=== PATIENT | male | born 1975 | race Caucasian/White ===

== ENCOUNTER 2017-06-05 17:40 | Emergency (ER) | payer SELFPAY ==
[~2017-06-05] VITALS: Ht 172.7 cm; Wt 83.5 kg
[2017-06-05 17:49] VITALS: BP_SYST 116
--- NOTE | 2017-06-05 17:59 | NUR ---
Jayshree alcala in ED - 06/05/17 at 1826 by RADHA Patient to [facility] 7 to [facility] for evaluation. Side rails up. Report received from [place].
--- NOTE | 2017-06-05 17:59 | NUR ---
Patient to ER bed 7 to gown for evaluation. Side rails up. Report received from ALDAIR [place].
--- NOTE | 2017-06-05 18:00 | NUR ---
Note cari in EDM - 06/05/17 at 1825 by RADHA Pt complains of having pain to right groin that radiates to right flank for 3 days. Pt states he vomited once on the first day but has not done so since. Pt also states it "hurts when I pee." No other injuries/complaints per patient or noted. at bedside.
--- NOTE | 2017-06-05 18:06 | NUR ---
ER Dr. Bates at bedside examining patient.
[2017-06-05 18:14] LABS: BILIRUBIN,URINE 1+ (NEGATIVE); BLOOD, URINE 3+ (NEGATIVE); CLARITY/URINE CLEAR (CLEAR); COLOR,URINE YELLOW (YELLOW); GLUCOSE,URINE NEGATIVE (NEGATIVE); KETONES,URINE TRACE (NEGATIVE); LEUKOCYTE ESTERASE ,URINE NEGATIVE (NEGATIVE); NITRITE, URINE NEGATIVE (NEGATIVE); PH,URINE 5.5 (5.0-8.0); PROTEIN URINE NEGATIVE (NEGATIVE); UROBILINOGEN,URINE 0.2 (0.2-1.0)
[2017-06-05] MEDS: KETOROLAC TROMETHAMINE 30 MG VIAL IVP ONE (18:14)
[2017-06-05 18:19] LABS: BASOPHILS % (AUTO) 0.8 % (0.0-2.0); EOSINOPHILS # (AUTO) 0.7 K/uL (0.0-0.4); EOSINOPHILS % (AUTO) 13.7 % (0.0-4.0); HEMATOCRIT 46.8 % (36-54); HEMOGLOBIN 15.5 g/dL (14.0-18.0); LYMPHOCYTES # (AUTO) 2.1 K/uL (1.0-5.5); LYMPHOCYTES % (AUTO) 38.5 % (20.5-51.5); MEAN CORPUSCULAR HEMOGLOBIN 27 pg (27-31); MEAN CORPUSCULAR HGB CONC 33 % (32-36); MEAN CORPUSCULAR VOLUME 82 fL (79.0-98.0); MONOCYTES # (AUTO) 0.6 K/uL (0.0-1.0); MONOCYTES % (AUTO) 10.5 % (1.7-9.3); NEUTROPHILS % (AUTO) 36.5 % (40.0-70.0); PLATELET COUNT (AUTO) 243 K/uL (130-430); RED BLOOD CELL COUNT(AUTO) 5.68 MIL/uL (4.2-6.2); RED CELL DISTRIBUTION WIDTH 13.5 % (9.0-15.0); WHITE BLOOD COUNT (AUTO) 5.4 K/uL (4.8-10.8)
[2017-06-05 18:20] LABS: RBC,URINE 20-50 /HPF (0-3); WBC,URINE 0-3 /HPF (0-3)
[2017-06-05 18:21] LABS: BACTERIA,URINE FEW /HPF (None Seen)
--- NOTE | 2017-06-05 18:32 | NUR ---
Pt went to radiology in stable condition.
[2017-06-05 18:34] LABS: CALCIUM 9.4 mg/dL (8.4-11.0); CREATININE 1.17 mg/dL (0.55-1.30); POTASSIUM 3.1 mmol/L (3.5-5.1)
[2017-06-05 18:38] LABS: ALBUMIN 4.1 g/dL (3.4-4.8); TOTAL BILIRUBIN 0.6 mg/dL (0.0-1.0)
--- NOTE | 2017-06-05 18:40 | NUR ---
Pt returned from radiology in stable condition.
[2017-06-05] MEDS: POTASSIUM CHLORIDE 20 MEQ TAB.PRT.SR PO ONE (18:53)
[2017-06-05 19:38] VITALS: BP_SYST 122
--- NOTE | 2017-06-05 19:38 | NUR ---
Patient given written and verbal discharge instructions and verbalizes understanding. ER MD discussed with patient the results and treatment provided. Patient in stable condition. ID arm band removed. IV catheter removed intact and dressing applied, no active bleeding. Rx of Zofran, Motrin, and Tramadol given. Patient educated on pain management and to follow up with PMD. Pain Scale 2/10 tolerable to patient. Opportunity for questions provided and answered.
== END 2017-06-05 19:38 | disposition home or self-care (01) ==
LOC: SED 17:40
DX: N20.0 Calculus of kidney (principal)
CPT/HCPCS: 36415; 74176; 80053; 81000; 83690; 85025; 96374; 99285; J1885

== ENCOUNTER 2017-08-24 13:16 | Emergency (ER) | payer MEDICAID ==
[~2017-08-24] VITALS: Ht 172.7 cm; Wt 79.4 kg
[2017-08-24 13:25] VITALS: BP_SYST 131
[2017-08-24] MEDS ORDERED: NACL 0.9% 1,000 ML IV ONE (14:08)
[2017-08-24 14:34] LABS: BASOPHILS % (AUTO) 0.7 % (0.0-2.0); EOSINOPHILS # (AUTO) 0.8 K/uL (0.0-0.4); EOSINOPHILS % (AUTO) 14.8 % (0.0-4.0); HEMATOCRIT 48.3 % (36-54); HEMOGLOBIN 15.6 g/dL (14.0-18.0); LYMPHOCYTES % (AUTO) 37.9 % (20.5-51.5); MEAN CORPUSCULAR HEMOGLOBIN 27 pg (27-31); MEAN CORPUSCULAR HGB CONC 32 % (32-36); MEAN CORPUSCULAR VOLUME 84 fL (79.0-98.0); MONOCYTES # (AUTO) 0.4 K/uL (0.0-1.0); MONOCYTES % (AUTO) 7.9 % (1.7-9.3); NEUTROPHILS % (AUTO) 38.7 % (40.0-70.0); PLATELET COUNT (AUTO) 248 K/uL (130-430); RED BLOOD CELL COUNT(AUTO) 5.78 MIL/uL (4.2-6.2); RED CELL DISTRIBUTION WIDTH 13.8 % (9.0-15.0); WHITE BLOOD COUNT (AUTO) 5.2 K/uL (4.8-10.8)
[2017-08-24 14:48] LABS: CALCIUM 9.9 mg/dL (8.4-11.0); CREATININE 0.82 mg/dL (0.55-1.30); POTASSIUM 4.1 mmol/L (3.5-5.1)
[2017-08-24 14:52] LABS: ALBUMIN 4.3 g/dL (3.4-4.8); TOTAL BILIRUBIN 0.4 mg/dL (0.0-1.0)
[2017-08-24 15:20] LABS: BILIRUBIN,URINE NEGATIVE (NEGATIVE); CLARITY/URINE CLEAR (CLEAR); COLOR,URINE YELLOW (YELLOW); GLUCOSE,URINE NEGATIVE (NEGATIVE); KETONES,URINE NEGATIVE (NEGATIVE); LEUKOCYTE ESTERASE ,URINE NEGATIVE (NEGATIVE); NITRITE, URINE NEGATIVE (NEGATIVE); PROTEIN URINE NEGATIVE (NEGATIVE); UROBILINOGEN,URINE 0.2 (0.2-1.0)
[2017-08-24 15:23] LABS: BLOOD, URINE TRACE (NEGATIVE)
[2017-08-24 15:35] LABS: BACTERIA,URINE FEW /HPF (None Seen); MUCUS,URINE None Seen /LPF (None Seen); RBC,URINE 0-3 /HPF (0-3); WBC,URINE 0-3 /HPF (0-3)
[2017-08-24 17:30] VITALS: BP_SYST 124
[2017-08-25] MEDS ORDERED: LACTULOSE 20 GM/30 ML UDC PO ONE (09:00)
== END 2017-08-24 17:30 | disposition home or self-care (01) ==
LOC: SED 13:16
DX: K92.1 Melena (principal); K59.00 Constipation, unspecified; J45.909 Unspecified asthma, uncomplicated
CPT/HCPCS: 36415; 74176; 80053; 81000; 83690; 85025; 96360; 99285; J7030

== ENCOUNTER 2018-10-22 10:45 | Emergency (ER) | payer MEDICAID ==
[~2018-10-22] VITALS: Ht 177.8 cm; Wt 90.7 kg
[2018-10-22 10:45] VITALS: BP_SYST 121
[2018-10-22 11:24] LABS: BASOPHILS % (AUTO) 0.9 % (0.0-2.0); EOSINOPHILS # (AUTO) 0.4 K/uL (0.0-0.4); EOSINOPHILS % (AUTO) 8.1 % (0.0-4.0); HEMATOCRIT 46.4 % (36-54); HEMOGLOBIN 15.4 g/dL (14.0-18.0); LYMPHOCYTES # (AUTO) 2.1 K/uL (1.0-5.5); LYMPHOCYTES % (AUTO) 45.1 % (20.5-51.5); MEAN CORPUSCULAR HEMOGLOBIN 28 pg (27-31); MEAN CORPUSCULAR HGB CONC 33 % (32-36); MEAN CORPUSCULAR VOLUME 84 fL (79.0-98.0); MONOCYTES # (AUTO) 0.4 K/uL (0.0-1.0); MONOCYTES % (AUTO) 9.2 % (1.7-9.3); NEUTROPHILS # (AUTO) 1.7 K/uL (1.8-7.7); NEUTROPHILS % (AUTO) 36.7 % (40.0-70.0); PLATELET COUNT (AUTO) 180 K/uL (130-430); RED BLOOD CELL COUNT(AUTO) 5.53 MIL/uL (4.2-6.2); RED CELL DISTRIBUTION WIDTH 14.3 % (9.0-15.0); WHITE BLOOD COUNT (AUTO) 4.7 K/uL (4.8-10.8)
[2018-10-22 11:43] LABS: CALCIUM 9.4 mg/dL (8.4-11.0); CREATININE 0.94 mg/dL (0.55-1.30)
[2018-10-22 11:51] LABS: ALBUMIN 4.3 g/dL (3.4-4.8); TOTAL BILIRUBIN 0.4 mg/dL (0.0-1.0)
[2018-10-22 11:56] LABS: BILIRUBIN,URINE NEGATIVE (NEGATIVE); CLARITY/URINE CLEAR (CLEAR); COLOR,URINE YELLOW (YELLOW); GLUCOSE,URINE NEGATIVE (NEGATIVE); KETONES,URINE NEGATIVE (NEGATIVE); LEUKOCYTE ESTERASE ,URINE NEGATIVE (NEGATIVE); NITRITE, URINE NEGATIVE (NEGATIVE); PROTEIN URINE NEGATIVE (NEGATIVE); UROBILINOGEN,URINE 0.2 (0.2-1.0)
[2018-10-22 11:59] LABS: BLOOD, URINE TRACE (NEGATIVE)
[2018-10-22 12:16] LABS: BACTERIA,URINE FEW /HPF (None Seen); WBC,URINE 0-3 /HPF (0-3)
[2018-10-22 13:18] VITALS: BP_SYST 136
== END 2018-10-22 13:18 | disposition home or self-care (01) ==
LOC: SED 10:45
DX: K21.9 Gastro-esophageal reflux disease without esophagitis (principal); J45.909 Unspecified asthma, uncomplicated; F17.200 Nicotine dependence, unspecified, uncomplicated
CPT/HCPCS: 36415; 74021; 80053; 81000-TC; 83690-TC; 85025; 99284

== ENCOUNTER 2018-11-12 21:18 | Emergency (ER) | payer MEDICAID ==
[~2018-11-12] VITALS: Ht 175.3 cm; Wt 90.7 kg
[2018-11-12 21:32] VITALS: BP_SYST 106
--- NOTE | 2018-11-12 21:39 | NUR ---
Patient triaged and placed in waiting room. VSS and patient appears in no acute distress at this time. Accompanied by family, awaiting available bed, and MD notified of need for MSE.
--- NOTE | 2018-11-12 22:09 | NUR ---
Patient to ER bed 4 to gown for evaluation. Side rails up. Report given to AGA QUINTEROS.
--- NOTE | 2018-11-12 22:20 | NUR ---
Pt is a 43 y/o male who comes to the ER w/ c/o of a skin tag on his upper back for a day. Pt reports he was seen by his PMD in [place] a day ago for was advised to remove it via strangulation. Pt arrived to the ER w/ a string tied around the base of the tag. Pt reports having severe pain at this time which is constant and nonradiating and is worse when pressure is applied. No meds have been used for pain. pt denies fever, chills, recent trauma, n/v, sob, cheat pain, or other complaints. Will cont to monitor pt.
--- NOTE | 2018-11-12 22:41 | NUR ---
ER Dr. Panchal at bedside examining patient.
--- NOTE | 2018-11-12 22:50 | NUR ---
Skin tag cleaned w/ NS and iodine, pat dry and bacitracin applied per MD order. Covered skin tag w/ non-adherant dressing. Pt tolerated procedure well, will cont to monitor.
[2018-11-12] MEDS ORDERED: BACITRACIN 1 GM OINT TP ONE (23:04)
[2018-11-12 23:07] VITALS: BP_SYST 106
--- NOTE | 2018-11-12 23:07 | NUR ---
Patient given written and verbal discharge instructions and verbalizes understanding. ER MD Dr. Panchal discussed with patient the results and treatment provided. Patient in stable condition. ID arm band removed. Rx of Keflex, motrin, and tramadol given. Patient educated on pain management and to follow up with PMD 2-3 days. Pain Scale 2/10, pt stable and able to ambulate out of ER. Opportunity for questions provided and answered. Medication side effect fact sheet provided.
== END 2018-11-12 23:07 | disposition home or self-care (01) ==
LOC: SED 21:18
DX: L91.8 Other hypertrophic disorders of the skin (principal); J45.909 Unspecified asthma, uncomplicated
CPT/HCPCS: 99283